=== PATIENT | female | born 1990 | race Two or more races ===

== ENCOUNTER 2024-07-02 18:58 | Observation (INO) | payer OTHER ==
[~2024-07-02] VITALS: Ht 162.6 cm; Wt 79.4 kg
[2024-07-02] MEDS ORDERED: NIFE10CA52 PO (21:26)
[2024-07-02] MEDS ORDERED: TERBUTALINE SULFATE 1 MG/ML 1ML VIAL SC ONE (21:27)
[2024-07-02] MEDS: TERBUTALINE SULFATE 1 MG/ML 1ML VIAL SC PRN (21:39)
[2024-07-02] MEDS: LACTATED RINGER'S 1,000 ML IV ONE (21:40)
[2024-07-02] MEDS: NIFEdipine 10 MG CAP PO ONE (21:45)
--- NOTE | 2024-07-02 21:59 | DVH ---
BIOPHYSICAL PROFILE HISTORY: IUGR/PTL TECHNIQUE: Multiple transabdominal real-time grayscale sonographic images through the gravid uterus of the fetus with duplex Doppler color flow and M-mode spectral analysis FINDINGS: BIOPHYSICAL PROFILE: breathing score: 2 movement score: 2 tone score: 2 Quantitative EUGENIA score: 2 (EUGENIA: 17.6 Cm.) Total score: 8/8 The cervix 3.84 cm in appears closed Single live fetus in cephalic presentation. heart rate 144 beats per minute. Anterior Grade 2 placenta without previa or abruption Single live fetus at 33 weeks 3 days Biophysical profile score 8/8 corresponding to an ROSSI of 08/17/2024 IMPRESSION: 1. Biophysical profile score: 8/8
--- NOTE | 2024-07-02 22:42 | DVHDS2 ---
Physician Discharge Progress N Final Diagnosis: testing for IUGR and PTL Operations or Procedures: Operations or Procedures S: 33yo IUP@33.3wks presents for NST/BPP for IUGR, Denies UCs/cramping/LOF/VB/[place]/vision changes/RUQ pain. Endorses +FM. PNC with Dr. Valerio, saw her on 07/01/24, next appt in 2 weeks. O: VSS NST reactive TOCO: UCs q4-6min initially then no UCs prior to D/C 1L LR IV bolus, 2 doses of SQ terbutaline, procardia 20mg PO given A: 33yo IUP@33.3wks IUGR PTL P: D/C home Dr. Valerio consulted, rx sent for procardia until 36 weeks. FKC/PTL precautions reviewed Other Interventions Other Interventions [place] [address] Ph: [phone] DIAGNOSTIC IMAGING Diagnostic Imaging Report : [id number] Signed PATIENT: RUSS DOUGHERTY AACCT: [id number] UNIT: [id number] : 1990 LOC: [facility] ROOM / BED: [facility] / A AGE / SEX: 33 / F ADM STATUS: ADM IN SERVICE 00 ORDERING PHYSICIAN: ANGELA YEPEZ CNM PROCEDURE(s): BPP - BIOPHYSICAL PROFILE REASON: IUGR/PTL ORDER NUMBER(s): [id number], ACCESSION NUMBER(s): [id number] BIOPHYSICAL PROFILE HISTORY: IUGR/PTL TECHNIQUE: Multiple transabdominal real-time grayscale sonographic images through the gravid uterus of the fetus with duplex Doppler color flow and M-mode spectral analysis FINDINGS: BIOPHYSICAL PROFILE: breathing score: 2 movement score: 2 tone score: 2 Quantitative EUGENIA score: 2 (EUGENIA: 17.6 Cm.) Total score: 8/8 The cervix 3.84 cm in appears closed Single live fetus in cephalic presentation. heart rate 144 beats per minute. Anterior Grade 2 placenta without previa or abruption Single live fetus at 33 weeks 3 days Biophysical profile score 8/8 corresponding to an ROSSI of 08/17/2024 IMPRESSION: 1. Biophysical profile score: 8/8 ATED BY: LU LAWLER Jr., DO DICTATED DATE/TIME: 07/02/242155 SIGNED BY: LU LAWLER Jr., SIGNED DATE/TIME: 07/02/242155 CC: Condition on Discharge: Stable Disposition: Home Discharge Instructions: Diet: Regular Activity: No Restrictions, As Tolerated Medications: see med list Follow Up Care: Specialist: f/u twice weekly per Dr. Valerio Discharge Statement: "Patient was advised to return to the ER or call 911 if any headaches, dizziness, shortness of breath, chest pain, abdominal pain, bleeding, fevers, or worsening of medical condition. Patient was counseled about treatment plan, medications, possible side effects, patientverbalized understanding. All questions were answered to the best of my ability. This discharge took greater then 30 minutes in planning, reviewing documentation, counseling the patient, and discussing with other team members." Visit Coding OBGYN Date of Service: Jul 02, 2024 Billing Provider: ANGELA YEPEZ CNM IRRIGATION SERVICE TECHNICIAN Common Visit Codes: [id number] OBS CARE (HIGH) IRRIGATION SERVICE TECHNICIAN Procedure Codes: 45500-18- NON-STRESS TEST ANGELA YEPEZ CNM Jul 02, 2024 22:41
== END 2024-07-02 22:55 | disposition home or self-care (01) ==
LOC: LDRP 18:58
PROVIDERS: ADMIT Obstetrics & Gynecology; ATTEND Obstetrics & Gynecology
DX: O36.5930 Maternal care for other known or suspected poor fetal growth, third trimester, not applicable or unspecified (principal); O60.03 Preterm labor without delivery, third trimester; Z98.890 Other specified postprocedural states; Z79.899 Other long term (current) drug therapy; Z3A.33 33 weeks gestation of pregnancy
CPT/HCPCS: 59025; 76818; 81002; 94760; 96360; 96361; 96372; G0378; J3105

== ENCOUNTER 2024-07-05 17:00 | Observation (INO) | payer OTHER ==
[~2024-07-05 17:00] MED LIST: NIFE10CA52 PO
--- NOTE | 2024-07-05 18:22 | DVH ---
BIOPHYSICAL PROFILE HISTORY: IUGR/PTL TECHNIQUE: Multiple transabdominal real-time grayscale sonographic images through the gravid uterus of the fetus with duplex Doppler color flow and M-mode spectral analysis FINDINGS: BIOPHYSICAL PROFILE: breathing score: 2 movement score: 2 tone score: 2 Quantitative EUGENIA score: 2 (EUGENIA: 16.3 Cm.) Total score: 8 4/8 The cervix 3.6 Single live fetus in breech presentation. heart rate 138 beats per minute. Anterior Grade 2 placenta without previa or abruption Single live fetus at 33 weeks 6 days Biophysical profile score /8 corresponding to an ROSSI of 08/17/2024 Estimated weight not calculated g IMPRESSION: 1. Biophysical profile score: 8/8
--- NOTE | 2024-07-06 12:48 | DVHDS2 ---
Discharge Summary Date of Admission Jul 05, 2024 at 17:00 Date of Discharge: Jul 05, 2024 Admitting Diagnosis Thirty-three in 6 7th weeks IUGR labor in for an evaluation and monitoring. Cervix closed heart tones reassuring no evidence of labor. Wounds: In/a Brief Hx & Hospital Course: None patient being 1 monitored Consults/Reason for consult By weekly history of labor 3 6 7th weeks IUGR Operations or Procedures In/a Condition at Discharge: Good Final Diagnosis/Problems List 3367 IUGR labor Discharge Disposition: Home SNF Discharge Will this Physician continue t: No Discharge Instruct/Medications Diet: Consistent carbohydrate Activity: Light activity Activity comment: Kick counts labor precautions SROM precautions Discharge Statement: "Patient was advised to return to the ER or call 911 if any headaches, dizziness, shortness of breath, chest pain, abdominal pain, bleeding, fevers, or worsening of medical condition. Patient was counseled about treatment plan, medications, possible side effects, patientverbalized understanding. All questions were answered to the best of my ability. This discharge took greater then 30 minutes in planning, reviewing documentation, counseling the patient, and discussing with other team members." DME: Diagnosis: contractions, IUGR ASSESSMENT ASSESSMENT Assessment Visit Coding OBGYN Date of Service: Jul 05, 2024 Billing Provider: NORM OBREGON DO FACILITY MAINTENANCE TECHNICIAN Common Visit Codes: [id number] INP/OBS CARE(MOD), 17609-AAI/OBS SAME DATE (LOW), 97592-WGA/OBS DISCH DAY <30MIN FACILITY MAINTENANCE TECHNICIAN Procedure Codes: 72008-27- NON-STRESS TEST NORM OBREGON DO Jul 06, 2024 12:48
== END 2024-07-05 19:02 | disposition home or self-care (01) ==
LOC: LDRP 17:00
PROVIDERS: ADMIT Obstetrics & Gynecology; ATTEND Obstetrics & Gynecology
DX: O36.5930 Maternal care for other known or suspected poor fetal growth, third trimester, not applicable or unspecified (principal); O60.03 Preterm labor without delivery, third trimester; Z98.890 Other specified postprocedural states; Z79.899 Other long term (current) drug therapy; Z3A.33 33 weeks gestation of pregnancy
CPT/HCPCS: 59025; 76818; 81002; 94760; G0378

== ENCOUNTER 2024-07-19 17:00 | Observation (INO) | payer OTHER ==
[~2024-07-19] VITALS: Ht 165.1 cm; Wt 79.4 kg
--- NOTE | 2024-07-19 17:57 | DVH ---
Procedure: US BIOPHYSICAL PROFILE 07/19/2024 05:05 PM Indication: IUGR/PTL Comparison: US BIOPHYSICAL PROFILE on DOS: 07/05/24, US BIOPHYSICAL PROFILE on DOS: 07/02/24 Technique: Sonogram of gravid uterus utilizing grayscale and color techniques transvaginal transpelvi c probes. FINDINGS: Single living intrauterine gestation. Presentation: Cephalic Placenta: Anterior heart rate: 136 bpm EUGENIA: 12.9 cm, DVP: 4.7 cm Maternal cervix: Closed, 3.3 cm in length in the transvaginal scan Biophysical Profile: breathing score: 2 movement score: 2 tone: 2 Quantitative EUGENIA score: 2 Total score: 8/8 IMPRESSION: 1. Single living as above. 2. Biophysical profile score: 8/8.
--- NOTE | 2024-07-20 13:10 | DVHDS2 ---
Discharge Summary Date of Admission Jul 19, 2024 at 17:00 Date of Discharge: Jul 19, 2024 Admitting Diagnosis IUGR, PTL 35.6 Wounds: none Labs/Diagnostic Data: reassuring FHT , US reassuring Brief Hx & Hospital Course: IUGR close observation Consults/Reason for consult none Operations or Procedures none Condition at Discharge: Good Final Diagnosis/Problems List IUGR 35.6 Discharge Disposition: Home SNF Discharge Will this Physician continue t: No Discharge Instruct/Medications Diet: Regular Activity: Light activity Activity comment: kick counts , labor precautions Follow Up/Referral: 1 week Discharge Statement: "Patient was advised to return to the ER or call 911 if any headaches, dizziness, shortness of breath, chest pain, abdominal pain, bleeding, fevers, or worsening of medical condition. Patient was counseled about treatment plan, medications, possible side effects, patientverbalized understanding. All questions were answered to the best of my ability. This discharge took greater then 30 minutes in planning, reviewing documentation, counseling the patient, and discussing with other team members." ASSESSMENT ASSESSMENT Assessment Visit Coding OBGYN Date of Service: Jul 20, 2024 Billing Provider: NORM OBREGON DO MILL CONTROL OPERATOR Common Visit Codes: 49074-UXZ/OBS SAME DATE (LOW), 15114-BOG/OBS SAME DATE (MOD), 64110-FRI/OBS SAME DATE (HIGH) MILL CONTROL OPERATOR Procedure Codes: 19988-55- NON-STRESS TEST NORM OBREGON DO Jul 20, 2024 13:10
== END 2024-07-19 18:30 | disposition home or self-care (01) ==
LOC: LDRP 17:00
PROVIDERS: ADMIT Obstetrics & Gynecology; ATTEND Obstetrics & Gynecology
DX: O60.03 Preterm labor without delivery, third trimester (principal); O36.5130 Maternal care for known or suspected placental insufficiency, third trimester, not applicable or unspecified; Z98.890 Other specified postprocedural states; Z79.899 Other long term (current) drug therapy; Z3A.35 35 weeks gestation of pregnancy
CPT/HCPCS: 76817; 76818; 81002; 94760; G0378; 59025

== ENCOUNTER 2024-07-26 17:09 | Observation (INO) | payer OTHER, MEDICAID ==
--- NOTE | 2024-07-26 18:45 | DVH ---
BIOPHYSICAL PROFILE HISTORY: IUGR and hx Labor TECHNIQUE: Multiple transabdominal real-time grayscale sonographic images through the gravid uterus of the fetus with duplex Doppler color flow and M-mode spectral analysis FINDINGS: BIOPHYSICAL PROFILE: breathing score: 2 movement score: 2 tone score: 2 Quantitative EUGENIA score: 2 (EUGENIA: 9.7 Cm.) Total score: 8 The cervix not well visualized. Single live fetus in cephalic presentation. heart rate 144 beats per minute. Anterior placenta without previa or abruption IMPRESSION: Biophysical profile score: 8
--- NOTE | 2024-07-26 19:45 | DVHDS2 ---
Physician Discharge Progress N Final Diagnosis: IUP at 36w 6d Reactive NST Normal Biopyhsical profile h/o PTL Operations or Procedures: Operations or Procedures 33yo G2,[address] for surveillance due to IUGR. She reports normal movements, no UCs, no leakage of fluid, vaginal bleeding, [place], vision changes or epigastric pain O: A&O x3 NAD. Afebrile, VSS Respiration: unlabored Abdomen: Gravid, non-tender to palpation Extremities: No edema BPP 8/8 EFM: FHR baseline 135, moderate variability and accelerations, no deceleration A: Normal BPP Reactive NST P: Continue care and surveillance 2x/week Keep all scheduled OB & MFM follow up appointments; seek care sooner if needed 3rd trimester emergency S&S FMC, PTL & pre-eclampsia precautions reviewed with pt; advised to seek health care if any Condition on Discharge: Good Disposition: Home Discharge Instructions: Diet: Regular Activity: Light activity Activity comment: Balance activities with rest periods Medications: None Follow Up Care: Discharge Statement: "Patient was advised to return to the ER or call 911 if any headaches, dizziness, shortness of breath, chest pain, abdominal pain, bleeding, fevers, or worsening of medical condition. Patient was counseled about treatment plan, medications, possible side effects, patientverbalized understanding. All questions were answered to the best of my ability. This discharge took greater then 30 minutes in planning, reviewing documentation, counseling the patient, and discussing with other team members." Visit Coding OBGYN Date of Service: Jul 26, 2024 Billing Provider: GOLDEN PARR CNM PROFESSOR OF PHILOSOPHY Common Visit Codes: 15932-TAC/OBS SAME DATE (HIGH) PROFESSOR OF PHILOSOPHY Procedure Codes: 32102-32- NON-STRESS TEST GOLDEN PARR CNM Jul 26, 2024 19:45
== END 2024-07-26 19:31 | disposition home or self-care (01) ==
LOC: LDRP 17:09
PROVIDERS: ADMIT Obstetrics & Gynecology; ATTEND Obstetrics & Gynecology
DX: O36.5930 Maternal care for other known or suspected poor fetal growth, third trimester, not applicable or unspecified (principal); Z98.890 Other specified postprocedural states; Z79.899 Other long term (current) drug therapy; Z3A.36 36 weeks gestation of pregnancy
CPT/HCPCS: 76817; 76819; 81002; G0378

== ENCOUNTER 2024-07-30 16:05 | Observation (INO) | payer OTHER, MEDICAID ==
--- NOTE | 2024-07-30 18:47 | DVHDS2 ---
Physician Discharge Progress N Final Diagnosis: testing for IUGR Operations or Procedures: Operations or Procedures 33yo IUP@37.3wks VSS NST reactive BPP 12/19 FKC/labor precautions reviewed Pt scheduled for IOL on 08/02/24. Condition on Discharge: Stable Disposition: Home Discharge Instructions: Diet: Regular Activity: No Restrictions, As Tolerated Medications: see med list Follow Up Care: Specialist: Pt scheduled for IOL on 08/02/24. Discharge Statement: "Patient was advised to return to the ER or call 911 if any headaches, dizziness, shortness of breath, chest pain, abdominal pain, bleeding, fevers, or worsening of medical condition. Patient was counseled about treatment plan, medications, possible side effects, patientverbalized understanding. All questions were answered to the best of my ability. This discharge took greater then 30 minutes in planning, reviewing documentation, counseling the patient, and discussing with other team members." Visit Coding OBGYN Date of Service: Jul 30, 2024 Billing Provider: ANGELA YEPEZ CNM MARKETING MANAGER Common Visit Codes: 88966-GOQWOAY OBS CARE (HIGH) MARKETING MANAGER Procedure Codes: 84997-83- NON-STRESS TEST ANGELA YEPEZ CNM Jul 30, 2024 18:47
--- NOTE | 2024-07-30 20:03 | DVH ---
Procedure: US BIOPHYSICAL PROFILE 07/30/2024 04:29 PM Indication: PTL/IUGR Comparison: US BIOPHYSICAL PROFILE on DOS: 07/26/24, US BIOPHYSICAL PROFILE on DOS: 07/19/24, US BIOPHYS ICAL PROFILE on DOS: 07/05/24 Technique: Sonogram of gravid uterus utilizing grayscale and color techniques. FINDINGS: Single living intrauterine gestation. Presentation: Cephalic Placenta: Anterior, grade 3, no previa or abruption heart rate: 130 bpm EUGENIA: 7 cm, DVP: 2.7 cm Maternal cervix: Not visualized Other: The umbilical cord is draped around the neck Biophysical Profile: breathing score: 2 movement score: 2 tone: 2 Quantitative EUGENIA score: 2 Total score: 8/8 IMPRESSION: 1. Single living as above. 2. Biophysical profile score: 8/8. 3. Nuchal cord.
== END 2024-07-30 17:30 | disposition home or self-care (01) ==
LOC: UNDOADMOB 16:05 → LDRP 16:05 → UNDOADMOB 16:19 → UNDODISOB 17:30
PROVIDERS: ADMIT Obstetrics & Gynecology; ATTEND Obstetrics & Gynecology
DX: O36.5930 Maternal care for other known or suspected poor fetal growth, third trimester, not applicable or unspecified (principal); Z3A.37 37 weeks gestation of pregnancy; Z79.899 Other long term (current) drug therapy
CPT/HCPCS: 76819; 81002; 94760; G0378

== ENCOUNTER 2024-07-31 16:30 | Observation (INO) | payer OTHER, MEDICAID ==
--- NOTE | 2024-08-01 12:53 | DVHDS2 ---
Physician Discharge Progress N Final Diagnosis: iugr 37wks Operations or Procedures: Operations or Procedures nst,sono Condition on Discharge: Good Disposition: Home Discharge Instructions: Diet: Regular Activity: Light activity Medications: na Follow Up Care: Specialist: 1d for induction Discharge Statement: "Patient was advised to return to the ER or call 911 if any headaches, dizziness, shortness of breath, chest pain, abdominal pain, bleeding, fevers, or worsening of medical condition. Patient was counseled about treatment plan, medications, possible side effects, patientverbalized understanding. All questions were answered to the best of my ability. This discharge took greater then 30 minutes in planning, reviewing documentation, counseling the patient, and discussing with other team members." Visit Coding OBGYN Date of Service: Aug 01, 2024 Billing Provider: ADRIANNA LEE DO MAP MOUNTER Common Visit Codes: [id number] INP/OBS CARE (HIGH) MAP MOUNTER Procedure Codes: 08753-91- NON-STRESS TEST ADRIANNA LEE DO Aug 01, 2024 12:53
== END 2024-07-31 17:31 | disposition home or self-care (01) ==
LOC: LDRP 16:30
PROVIDERS: ADMIT Obstetrics & Gynecology; ATTEND Obstetrics & Gynecology
DX: O36.5130 Maternal care for known or suspected placental insufficiency, third trimester, not applicable or unspecified (principal); O13.3 Gestational [pregnancy-induced] hypertension without significant proteinuria, third trimester; Z98.890 Other specified postprocedural states; Z79.899 Other long term (current) drug therapy; Z3A.37 37 weeks gestation of pregnancy
CPT/HCPCS: 59025; 81002; 94760; G0378

== ENCOUNTER 2024-08-01 07:26 | Inpatient (IN) | payer OTHER, MEDICAID ==
[~2024-08-01] VITALS: Ht 162.6 cm; Wt 83.9 kg
[2024-08-01] MEDS ORDERED: LIDOCAINE 2%HCL (LOCAL ANESTH.) INJ 20ML MDV IJ PRN (23:45)
[2024-08-01] MEDS ORDERED: ONDANSETRON HCL 4 MG/2 ML VIAL IV PRN (23:45)
[2024-08-02 00:14] LABS: Basophils # (auto) 0 10 ^3/uL (0-0.2); Basophils % (auto) 0.4 % (0.0-2.0); Eosinophils # (auto) 0.1 10 ^3/uL (0-0.8); Eosinophils % (auto) 1.1 % (0.0-7.0); Hematocrit 33.8 % (36.0-46.0); Hemoglobin 11.6 g/dL (12.2-16.2); Lymphocytes # (auto) 2.4 10 ^3/uL (0.4-5.4); Lymphocytes % (auto) 26.4 % (10.0-50.0); Mean Corpuscular Hemoglobin 30.4 pg (28.0-32.0); Mean Corpuscular Hgb Conc. 34.5 g/dL (32.0-36.0); Mean Corpuscular Volume 88.2 fL (80.0-100.0); Monocytes # (auto) 0.4 10 ^3/uL (0-1.3); Monocytes % (auto) 4.8 % (0.0-12.0); Neutrophils # (auto) 6.1 10 ^3/uL (1.6-8.6); Neutrophils % (auto) 67.3 % (37.0-80.0); Platelet Count (auto) 204 10^3/uL (140-450); Red Blood Cells 3.83 10^6/uL (4.0-5.20); Red Cell Distribution Width 14.3 % (11.8-14.3); White Blood Cell 9.1 10^3/uL (4.4-10.8)
[2024-08-02] MEDS: WITCH HAZEL-GLYCERIN PAD TOP PRN (00:22)
[2024-08-02] MEDS: DERMOPLAST 60ML BOTTLE TOP PRN (00:22)
[2024-08-02] MEDS: PHISODERM TOP SOLN 240ML BTL TOP PRN (00:22)
[2024-08-02] MEDS: miSOPROStol 50 MCG per PRE-CUT 1/2 TAB PO PRN (00:25)
[2024-08-02 00:27] LABS: Urine Bacteria FEW /hpf (None Seen); Urine Blood 2+ /uL (Negative); Urine Budding Yeast OCCASIONAL /hpf (None Seen); Urine Clarity Turbid (Clear); Urine Color Yellow (Yellow); Urine Mucus FEW (None Seen); Urine Protein, UAD TRACE (Negative); Urine Specific Gravity 1.036 (1.001-1.035); Urine Squamous Epithelial Cell MANY /hpf (<5); Urine Urobilinogen 2 mg/dL (Negative); Urine WBC 31 /HPF (0-5); Urine pH 6.5 (5.0-9.0)
[2024-08-02 00:29] LABS: INR 0.92 (0.9-1.15); Partial Thromboplastin Time 26.9 SEC (24.5-34.5); Prothrombin Time 9.8 sec (9.3-11.8)
[2024-08-02 00:49] LABS: Alanine Aminotransferase 9 U/L (7-40); Albumin 3.9 g/dL (3.2-4.8); Alkaline Phosphatase 151 U/L (46-116); Anion Gap 9 (5-15); Aspartate Aminotransferase 12 U/L (13-40); BUN/Creatinine Ratio 22.9 (10.0-20.0); Bilirubin, Total 0.2 mg/dL (0.2-1.0); Blood Urea Nitrogen 11 mg/dL (9-23); Calcium 9.3 mg/dL (8.7-10.4); Carbon Dioxide 19 mmol/L (20-31); Chloride 111 mmol/L (98-107); Glucose 109 mg/dL (74-106); Potassium 3.6 mmol/L (3.5-5.1); Sodium 139 mmol/L (136-145); Total Protein 6.6 g/dL (5.7-8.2)
--- NOTE | 2024-08-02 01:25 | DVHHP ---
ADMIT DATE: 08/01/2024 CHIEF COMPLAINT: Here for induction of labor secondary to IUGR. HISTORY OF PRESENT ILLNESS: The patient is a 33-year-old 2, para 1 with EDC 08/17, estimated gestational age of 37 and 6/7, admitted for induction of labor secondary to IUGR. The patient saw Dr. Hunt on , noted to have no growth. Baby was less than 5 percentile and he recommended immediate delivery. The baby's weight is 2346. She denies having any rupture of membrane or vaginal bleeding. PAST MEDICAL HISTORY: None. PAST SURGICAL HISTORY: None. SOCIAL HISTORY: None. FAMILY HISTORY: None. OBSTETRIC AND GYNECOLOGIC HISTORY: One normal vaginal delivery. REVIEW OF SYSTEMS: Consistent with HPI. PHYSICAL EXAMINATION: VITAL SIGNS: Stable, afebrile. HEENT: Within normal limits. CARDIOVASCULAR: Regular rate and rhythm. LUNGS: Clear to auscultation. BREASTS: Symmetrical. No masses. ABDOMEN: Gravid. Positive heart. PELVIC: Fingertip thick, -3. EXTREMITIES: No clubbing, cyanosis or edema. IMPRESSION: Induction of labor for intrauterine growth restriction. PLAN: Induction of labor. The patient will be given Cytotec. Informed consent obtained. Risks, complication of induction discussed with the patient. Options reviewed. All questions answered. The patient fully understands. She wishes to proceed with induction of labor. Marisela Valerio DO MZ/HEM TID: [id number] RECEIPT: [id number]
[2024-08-02 01:51] LABS: Amphetamine Screen, Urine Neg (NEGATIVE); Barbiturate Scree,Urine Neg (NEGATIVE); Benzodiazephine Screen, Urine Neg (NEGATIVE); Cannabinoid Screen, Urine Neg (NEGATIVE); Cocaine Screen, Urine Neg (NEGATIVE); Opiate Scree,Urine Neg (NEGATIVE); Phencyclidine Screen, Urine Neg (NEGATIVE)
[2024-08-02] MEDS ORDERED: TERBUTALINE SULFATE 1 MG/ML 1ML VIAL SC PRN (03:00)
[2024-08-02] MEDS: NALBUPHINE HCL 10 MG/1ml INJECTION IV PRN (03:21)
[2024-08-02] MEDS ORDERED: PENICILLIN G POTASSIUM 2,500,000 UNITS in D5W 5% 50 ML IV SCH (03:45)
[2024-08-02] MEDS: LACTATED RINGER'S 1,000 ML IV SCH (04:22)
[2024-08-02] MEDS: PENICILLIN G POT 5MIL/D5 50ML 50 ML IV ONE (04:55)
[2024-08-02] MEDS ORDERED: fentaNYL 400mCg/200ml W ROPIVA 200 ML EPI SCH (05:15)
[2024-08-02] MEDS ORDERED: NALOXONE HCL 0.4 MG/ML VIAL IV ONE (05:15)
[2024-08-02] MEDS ORDERED: LIDOCAINE HCL 2 %PF INJ 10ML AMP IJ ONE (05:15)
[2024-08-02] MEDS ORDERED: ePHEDrine SULFATE 50 MG/ML AMP IV ONE (05:15)
[2024-08-02] MEDS ORDERED: SODIUM CHLORIDE LOCK 20 ML ONE (06:25)
[2024-08-02] MEDS: fentaNYL CITRATE 100 MCG/2 ML VL IV ONE (06:31)
--- NOTE | 2024-08-02 06:45 | EPIDURAL ---
Anesthesia Procedural Note - Epidural Informed consent obtained?: Yes Medication Administered: Fentanyl 100 mcg Sterile prept drape: Yes Spinal level of insertion: L3-L4 Test dose of lidocaine & Epine: Negative Infusion started: Yes Start time: 05:26 End time: 06:41 Procedure description Procedure description: 37 6/7 weeks AOG for induction for IUGR in active labor desiring PCEA for L & D. Chart reviewed, patient examined, informed consent obtained. Hooked up to monitors so vital signs could be recorded every 2 minutes during the procedure. Ms. Cotton has been given IVF bolus prior to the procedure, and is still being bolused until she's stable after the procedure. Positioned sitting for epidural placement, hooked on monitors. Epidural area infiltrated with 1% llidocaine. [id number] needle used to find epidural space, using loss of resistance technique. Test dose x 2 both negative. Epidural cathet er easily placed and secured. Infusion with ropivacaine for L & D started. Ms. Cotton comfortable with contractions, with pain score 2-3/10. Delivered a single live baby girl with APGARs 8 & 9, severe IUGR, x1 nuchal cord. Placenta delivered spontaneously. Epidural catheter pulled with tip intact. No redness, oozing, or swelling around the epidural area. Ms. Cotton is back to baseline. No complications. Total face to face time: 525 Total epidural time: 525 CURTIS HOOD MD Aug 02, 2024 06:45
--- NOTE | 2024-08-02 07:11 | DVHPN2 ---
Chief Complaints Patient reports: No new complaints Nursing reports: No new complaints Objective Vitals Vital Signs Date Time Temp Pulse Resp B/P (MAP) Pulse Ox O2 Delivery O2 Flow Rate FiO2 08/02/24 06:31 118/63 08/02/24 04:21 83 16 Medications Current Medications Medications (Trade) Dose Ordered Sig/Colin Route PRN Reason Start Time Stop Time Status Last Admin Benzocaine (Dermoplast) 1 applic PRN PRN TOP PERINEAL AREA DISCOMFORT 08/01/24 23:45 08/02/24 00:22 Fentanyl/ Ropivacaine 200 ml @ 0 mls/hr UD EPI 08/02/24 05:15 08/04/24 05:14 Lactated Ringer's 1,000 ml @ 125 mls/hr Q8H IV 08/01/24 23:45 08/02/24 05:54 Lidocaine HCl (Xylocaine) 20 ml ONCE PRN IJ PERINEAL AREA DISCOMFORT 08/01/24 23:45 Misoprostol (Cytotec) 50 mcg Q4HPRN PRN PO CERVICAL RIPENING 08/01/24 23:45 08/02/24 00:25 Nalbuphine HCl (Nubain) 10 mg Q4HP PRN IV MODERATE PAIN (4-6 PAIN SCALE) 08/01/24 23:45 08/02/24 03:21 Ondansetron HCl (Zofran) 4 mg Q6HPRN PRN IV NAUSEA / VOMITING 08/01/24 23:45 Penicillin G Potassium 0415088 units/Dextrose 50 ml @ 100 mls/hr Q4H IV 08/02/24 03:45 Sodium Lauryl Sulfate (Phisoderm) 240 ml PRN PRN TOP PERINEAL AREA DISCOMFORT 08/01/24 23:45 08/02/24 00:22 Terbutaline Sulfate (Brethine Inj) 0.25 mg ONCE PRN SC Uterine tachysystole 08/02/24 03:00 Anita Valera (Simoncks) 1 pad PRN PRN TOP PERINEAL AREA DISCOMFORT 08/01/24 23:45 08/02/24 00:22 Others ve-10cm/100/0 Studies Laboratory Tests 08/01/24 23:50 Test 08/01/24 23:50 Range/Units Serum Glucose 109 H 74-106 mg/dL Ass/Plan Assessment active labor Plan pt endorsed to dr malini rios dr covering Visit Coding OBGYN Date of Service: Aug 02, 2024 Billing Provider: ADRIANNA LEE DO SHOE FITTER Common Visit Codes: 67706-YQR/OBS SAME DATE (LOW) ADRIANNA LEE DO Aug 02, 2024 07:11
[2024-08-02] MEDS: LACT. RINGERS/OXYTOCIN 20UNITS 500 ML IV ONE ×2 (07:46→07:48)
[2024-08-02] MEDS: ROPIVACAINE HCL 200 ML ONE (07:48)
--- NOTE | 2024-08-02 08:03 | LDN2 ---
Labor and Delivery Note Date 08/02/24 Age 33 2 Para 2 EGA 38 Diagnosis Severe IUGR, nuchal cord Induction of labor s/p Vaginal Delivery: VTX Vacuum Assisted: No Placenta: Spontaneous Sex: Female Weight 5lb1oz Apgars 8/9 Nuchal Cord Transected: No (Loose nuchal cord x 1, reduced at perineum) Amniotic Fluid: Clear Anesthesia Epidural Episiotomy: No Extension: No Repaired with small 1st deg lac repaired with 1 stitch of 3-0 chromic in vagina EBL 100 mL Labs Blood Bank 08/01/24 23:50: Blood Type B NEGATIVE Complications None Visit Coding OBGYN Date of Service: Aug 02, 2024 Billing Provider: SHANNEN BEDOYA DO STUDIO SALES ASSOCIATE Common Visit Codes: [id number] INP/OBS CARE(HIGH) STUDIO SALES ASSOCIATE Procedure Codes: 70331-YKVIW OB CARE,VAG DELIVERY SHANNEN BEDOYA DO Aug 02, 2024 08:03
[2024-08-02] MEDS ORDERED: ACETAMINOPHEN 325 MG TAB PO PRN (08:30)
[2024-08-02] MEDS ORDERED: ONDANSETRON ODT 4 MG TAB PO PRN (08:30)
[2024-08-02 10:00] VITALS: PULSE 81; RESP 16; O2SAT 99
[2024-08-02 10:46] VITALS: BP 119/74; PULSE 92; RESP 18; TEMP 98.3
[2024-08-02 15:30] VITALS: BP 119/74; PULSE 78; RESP 18; TEMP 98.3; O2SAT 96
[2024-08-02] MEDS ORDERED: PREN-129 OR (15:34)
[2024-08-02] MEDS: IBUPROFEN 600 MG TAB PO PRN (16:12)
[2024-08-02 16:32] VITALS: BP 119/68; PULSE 78; RESP 16; TEMP 98.3
[2024-08-02] MEDS: RHO (D) IMMUNE GLOBULIN 300 MCG INJ IM ONE (16:32)
[2024-08-02 18:30] VITALS: BP 107/58; PULSE 82; RESP 14; TEMP 97.7; O2SAT 96
[2024-08-02] MEDS ORDERED: DOCUSATE SOD 100 MG CAP PO SCH (22:00)
[2024-08-02 23:00] VITALS: BP 129/70; PULSE 90; RESP 14; TEMP 98.7; O2SAT 98
[2024-08-03 03:00] VITALS: BP 129/75; PULSE 86; RESP 14; TEMP 97.8; O2SAT 98
--- NOTE | 2024-08-03 03:52 | DVHPN2 ---
Progress Note Date Seen: Aug 03, 2024 Subjective PPD#1 s/p at Term, delivered by induction for IUGR, baby with apparent Trisomy 21 S: Lochia minimal. no pain. vital signs Vital Sign Date Time Temp Pulse Resp B/P (MAP) Pulse Ox O2 Delivery O2 Flow Rate FiO2 08/02/24 18:30 97.7 82 14 107/58 (74) 96 97.7 08/02/24 18:30 Room Air Total Intake and Output 08/02/24 08/02/24 08/03/24 15:00 23:00 07:00 Output Total 2100 ml 900 ml Balance -2100 ml -900 ml medications Current Medications Medications Dose Ordered Sig/Colin Route Start Time Stop Time Status Last Admin Dose Admin Lactated Ringer's 1,000 ml @ 125 mls/hr Q8H IV 08/01/24 23:45 08/02/24 05:54 125 MLS/HR Penicillin G Potassium 7475239 units/Dextrose 50 ml @ 100 mls/hr Q4H IV 08/02/24 03:45 Cancel Witch Moraima 1 pad PRN PRN TOP 08/01/24 23:45 08/02/24 00:22 1 PAD Sodium Lauryl Sulfate 240 ml PRN PRN TOP 08/01/24 23:45 08/02/24 00:22 240 ML Benzocaine 1 applic PRN PRN TOP 08/01/24 23:45 08/02/24 00:22 1 APPLIC Lidocaine HCl 20 ml ONCE PRN IJ 08/01/24 23:45 Cancel Terbutaline Sulfate 0.25 mg ONCE PRN SC 08/02/24 03:00 Cancel Fentanyl/ Ropivacaine 200 ml @ 0 mls/hr UD EPI 08/02/24 05:15 08/04/24 05:14 Ibuprofen 600 mg Q6HP PRN PO 08/02/24 08:30 08/02/24 16:12 600 MG Acetaminophen 650 mg Q4HP PRN PO 08/02/24 08:30 Ondansetron HCl 4 mg Q4HPRN PRN PO 08/02/24 08:30 Docusate Sodium 200 mg HS PO 08/02/24 22:00 laboratory and microbiology Laboratory Tests 08/01/24 23:50 Test 08/01/24 23:50 Range/Units Serum Glucose 109 H 74-106 mg/dL Objective O: AFVSS Chest: heart and lung sounds normal. Abd soft, non-tender, fundus firm, BS, no rebound or guarding, Ext Neg Homans, Non-tender, edema Lochia - minimal Labs Pending Assessment/Plan POD#1 s/p doing well Continue supportive care Advance orders D/C planning Plan discussed with: Patient, Other (RN) Visit Coding OBGYN Date of Service: Aug 03, 2024 Billing Provider: [facility] INT SOLUTION DEVELOPER Common Visit Codes: [id number] INP/OBS CARE(MOD) SHANNEN BEDOYA DO Aug 03, 2024 03:52
[2024-08-03 07:23] LABS: Basophils # (auto) 0.1 10 ^3/uL (0-0.2); Basophils % (auto) 1.2 % (0.0-2.0); Eosinophils # (auto) 0.1 10 ^3/uL (0-0.8); Eosinophils % (auto) 0.8 % (0.0-7.0); Hemoglobin 10.8 g/dL (12.2-16.2); Lymphocytes # (auto) 2.5 10 ^3/uL (0.4-5.4); Mean Corpuscular Hemoglobin 29.7 pg (28.0-32.0); Mean Corpuscular Hgb Conc. 33.8 g/dL (32.0-36.0); Mean Corpuscular Volume 88.1 fL (80.0-100.0); Monocytes # (auto) 0.5 10 ^3/uL (0-1.3); Monocytes % (auto) 5.5 % (0.0-12.0); Neutrophils # (auto) 6.4 10 ^3/uL (1.6-8.6); Neutrophils % (auto) 66.5 % (37.0-80.0); Nucleated Red Blood Cells % 0.1 %; Platelet Count (auto) 202 10^3/uL (140-450); Red Blood Cells 3.63 10^6/uL (4.0-5.20); Red Cell Distribution Width 13.9 % (11.8-14.3); White Blood Cell 9.7 10^3/uL (4.4-10.8)
--- NOTE | 2024-08-03 09:30 | DVHDS2 ---
Physician Discharge Progress N Final Diagnosis: Term , IUGR Induciton of labor s/p Secondary Diagnosis: Possible down syndrome Operations or Procedures: Operations or Procedures Induction of labor with Commentary: Commentary Uneventful after labor induction Possible Down Syndrome, not known prenatally Baby transferred to [facility] Condition on Discharge: Stable Disposition: Home Discharge Instructions: Diet: Regular Activity: Light activity Activity comment: Pelvic rest x 6 weeks Follow Up/Referral: [address] Valerio Medications: N/A Follow Up Care: Discharge Statement: "Patient was advised to return to the ER or call 911 if any headaches, dizziness, shortness of breath, chest pain, abdominal pain, bleeding, fevers, or worsening of medical condition. Patient was counseled about treatment plan, medications, possible side effects, patientverbalized understanding. All questions were answered to the best of my ability. This discharge took greater then 30 minutes in planning, reviewing documentation, counseling the patient, and discussing with other team members." Visit Coding OBGYN Date of Service: Aug 03, 2024 Billing Provider: SHANNEN BEDOYA DO APPAREL SALES ASSOCIATE Common Visit Codes: 25422-PYX/OBS DISCH DAY <30MIN SHANNEN BEDOYA DO Aug 03, 2024 09:30
== END 2024-08-03 10:39 | disposition home or self-care (01) | DRG 807 ==
LOC: LDRP 23:01 → PREOBSVTOIN 23:14 → LDRP 08-02 10:00
PROVIDERS: ADMIT Obstetrics & Gynecology; ATTEND Obstetrics & Gynecology
PROC: 10E0XZZ Delivery of Products of Conception, External Approach (ICD-10-PCS; principal; 2024-08-02)
PROC: 0HQ9XZZ Repair Perineum Skin, External Approach (ICD-10-PCS; 2024-08-02)
PROC: 3E0DXGC Introduction of Other Therapeutic Substance into Mouth and Pharynx, External Approach (ICD-10-PCS; 2024-08-02)
PROC: 3E0R3BZ Introduction of Anesthetic Agent into Spinal Canal, Percutaneous Approach (ICD-10-PCS; 2024-08-02)
PROC: 00HU33Z Insertion of Infusion Device into Spinal Canal, Percutaneous Approach (ICD-10-PCS; 2024-08-02)
DX: O36.5930 Maternal care for other known or suspected poor fetal growth, third trimester, not applicable or unspecified (principal); Z37.0 Single live birth; O75.9 Complication of labor and delivery, unspecified; Z3A.37 37 weeks gestation of pregnancy; O69.81X0 Labor and delivery complicated by cord around neck, without compression, not applicable or unspecified; Q90.9 Down syndrome, unspecified
CPT/HCPCS: 36415; 59409; 62282; 80053; 80307; 81001; 85025; 85610; 85730; 86780; 86803; 86850; 86870; 86900; 86901; 90384; 94760; 94762; 96360; 96361; 96374; G0378; J2540; J2590; J7060